=== PATIENT | male | born 1990 | race Caucasian/White ===

== ENCOUNTER 2019-05-07 19:13 | Emergency (ER) | payer BC ==
[2019-05-07] MEDS ORDERED: predniSONE TAB* 20 MG PO ONE (20:36)
--- NOTE | 2019-05-07 20:36 | ED ---
Neurological HPI - HPI Summary HPI Summary: Patient is a 28 y/o M presenting to [facility] with complaints of right sided cheek numbness, tongue numbness, and decreased vision at the right eye. He also states that he has been told that his right eye has not been blinking. Patient reports Sx onset today, 05/07/19, around noon. He states that he did not notice any Sx when he woke up this morning. Patient reports that he began to notice his Sx predominantly in the evening today, as he was not able to taste his food. He denies CASSIDY, recent trauma, fever, SOB, CP, N/V/D, weakness/tingling/ numbness at lower extremities. Patient reports no similar previous episodes. He denies any aggravating/alleviating Sx. Patient denies being on any daily medications and FMHx of Sunshine's Palsy. Patient is a current smoker, uses alcohol occasionally, and denies substance usage. On triage, pain is denied. Home medications and allergies are reviewed. Home Medications NK [No Home Medications Reported] 05/07/19 [History Confirmed 05/07/19] - History of Current Complaint Chief Complaint: EDNeurologicalDeficit Stated Complaint: RT SIDE FACE NUMBNESS PER PT Time Seen by Provider: 05/07/19 20:24 Hx Obtained From: Patient Onset/Duration: Started hours ago, Still Present Timing: Constant Current Severity: None Neurological Deficit Location: Facial - right cheek, tongue, right eye Pain Intensity: 0 Pain Scale Used: 0-10 Numeric Character: Numbness/Tingling - right cheek, tongue numbness, Visual Changes - right eye Aggravating: Nothing Alleviating: Nothing Associated Signs and Symptoms: Positive: Visual Changes, Numbness. Negative: Headache, Weakness, Nausea/Vomiting, Fever, Diarrhea, Chest Pain, Shortness of Breath, Trauma: Recent - Allergy/Home Medications Allergies/Adverse Reactions: Allergies Allergy/AdvReac Type Severity Reaction Status Date / Time No Known Allergies Allergy Verified 05/07/19 19:20 PMH/Surg Hx/FS Hx/Imm Hx Sensory History: Denies: Hx Legally Blind, Hx Deafness Opthamlomology History: Denies: Hx Legally Blind EENT History: Denies: Hx Deafness Infectious Disease History: No Infectious Disease History: Denies: Traveled Outside the [place] in Last 30 Days - Family History Known Family History: Positive: Other - no FMHx of Sunshine Palsy - Social History Alcohol Use: Occasionally Substance Use Type: Reports: None Smoking Status (MU): Light Every Day Tobacco Smoker Review of Systems Negative: Fever Eyes: Other - positive - decreased vision at right eye, not blinking at right eye Negative: Chest Pain Negative: Shortness Of Breath Negative: Vomiting, Diarrhea, Nausea Musculoskeletal: Other - negative - recent trauma Neurological: Other - negative - tingling of lower extremities Positive: Numbness - right cheek, tongue. Negative: Headache, Weakness - of lower extremities All Other Systems Reviewed And Are Negative: Yes Physical Exam - Summary Physical Exam Summary: General: Well-developed, Well-nourished male. No acute distress. HEENT: Normocephalic, Atraumatic. Eyes: Conjuctiva normal, PERRL. EOMI with exception of right upper eyelid weakness Ears: TMs within normal limits. Nares: (-) discharge, (-) erythema. Oropharynx: Clear, mucous membranes moist, (-) exudates. Neck: Soft, FROM, (-) lymphadenopathy, (-) thyromegaly, (-) JVD. Cardiovascular: Normal sinus rhythm, (-) murmur. Lungs: Clear to auscultation bilaterally (-) wheezes, (-) rales, (-) rhonchi. Abdomen: Soft, non-tender, non-distended, (-) organomegaly, normal bowel sounds. Back: (-) CVA tenderness Extremities: No edema. Skin: Warm, dry, (-) rash. Neuro: Alert and oriented x3, there is weakness of right upper eyelid, decreased strength of right forehead and right facial droop Psychiatric: Mood normal, affect normal. Triage Information Reviewed: Yes Vital Signs On Initial Exam: Initial Vitals Temp Pulse Resp BP Pulse Ox 98.2 F 79 18 154/100 98 05/07/19 19:20 05/07/19 19:20 05/07/19 19:20 05/07/19 19:20 05/07/19 19:20 Vital Signs Reviewed: Yes Diagnostics - Vital Signs Vital Signs Temp Pulse Resp BP Pulse Ox 05/07/19 20:09 72 98 05/07/19 20:08 80 141/89 98 05/07/19 19:20 98.2 F 79 18 154/100 98 - Laboratory Lab Statement: Any lab studies that have been ordered have been reviewed, and results considered in the medical decision making process. Course/Dx - Course Course Of Treatment: Patient is a 28 y/o M presenting to [facility] with complaints of right sided cheek numbness, tongue numbness, and decreased vision at the right eye. He also states that he has been told that his right eye has not been blinking. Patient reports Sx onset today, 05/07/19, around noon. He states that he did not notice any Sx when he woke up this morning. Patient reports that he began to notice his Sx predominantly in the evening today, as he was not able to taste his food. He denies CASSIDY, recent trauma, fever, SOB, CP, N/V/D, weakness/ tingling/numbness at lower extremities. Patient reports no similar previous episodes. On physical exam, there is weakness of right upper eyelid, decreased strength of right forehead and right facial droop. Patient received prednisone 60 mg PO. He was discharged to home with prescription for prednisone and was instructed to follow up with PCP within three days. Patient is agreeable with this plan. - Diagnoses Provider Diagnoses: Sunshine's palsy Discharge ED - Sign-Out/Discharge Documenting (check all that apply): Patient Departure - discharge Patient Received Moderate/Deep Sedation with Procedure: No - Discharge Plan Condition: Stable Disposition: HOME Prescriptions: predniSONE TAB* [Deltasone 20 MG TAB*] 60 mg PO DAILY #21 tab Patient Education Materials: Sunshine Palsy (ED) Referrals: Care [facility] [Outside] - 3 Days Additional Instructions: Please follow up with your primary care physician within three days. Please return to ED for any new or worsening symptoms. - Billing Disposition and Condition Condition: STABLE Disposition: Home - Attestation Statements Document Initiated by Scribe: Yes Documenting Scribe: CRYSTAL GOMEZ Provider For Whom Stacie is Documenting (Include Credential): RITO MCGEE MD Scribe Attestation: CRYSTAL Ramachandran scribed for RITO MCGEE MD on 05/08/19 at 0114. Scribe Documentation Reviewed: Yes Provider Attestation: The documentation as recorded by the CRYSTAL snyder accurately reflects the service I personally performed and the decisions made by me, RITO MCGEE MD Status of Scribe Document: Viewed
[2019-05-07 21:04] VITALS: BP 137/87
== END 2019-05-07 21:04 | disposition home or self-care (01) ==
LOC: ED 19:13
DX: G51.0 Bell's palsy (principal); R20.0 Anesthesia of skin; F17.210 Nicotine dependence, cigarettes, uncomplicated
CPT/HCPCS: 99283; J7512